=== PATIENT | female | born 1970 | race Caucasian/White ===

== ENCOUNTER 2020-01-20 18:39 | Emergency (ER) | payer OTHER, SELFPAY ==
--- NOTE | ~2020-01-20 | XR_ITS ---
EXAMINATION: XR wrist RT min 3V EXAM DATE: 01/20/2020 19:25 INDICATION: Chronic Wrist Pain. TECHNIQUE: Right wrist frontal, frontal with ulnar deviation, oblique and lateral projections obtain ed and reviewed. Comparison is made to prior examination from 11/01/2013. FINDINGS: Right wrist scapholunate joint space is maintained. There is ulnar positive variance with interval development of moderate osteoarthritis at the distal radial ulnar joint. There is mild to mo derate 1st carpometacarpal primary osteoarthritis. There are no acute fractures or dislocations ident ified. There is no subcutaneous gas. The soft tissue is unremarkable. There are no radiopaque for eign bodies. There are no bony erosions identified. IMPRESSION: Polyarticular osteoarthritis as above. Reviewed, dictated and finalized at location A.
--- NOTE | ~2020-01-20 | XR_ITS ---
EXAMINATION: XR lumbar spine 2-3V EXAM DATE: 01/20/2020 19:25 INDICATION: Injury 01/17/20. Moving Heavy Furniture. Low Back Pain. Initial encounter. TECHNIQUE: Lumber spine frontal, lateral, lateral L5-S1 projections for interpretation. There is no prior study for comparison. FINDINGS: Mild diffuse lumbar disc disease. The vertebral bodies are aligned in the AP dimension. Ve rtebral body heights maintained. There are no acute fractures identified. There is mild upper lumbar, mild to moderate lower lumbar facet arthropathy. Right hip replacement. Cholecystectomy clips. Sacru m, sacroiliac joints, sacral arcuate lines are intact. Calcifications in the pelvis are believed to b e phleboliths. IMPRESSION: 1. Mild lumbar disc disease. 2. Mild to moderate facet arthropathy. Reviewed, dictated and finalized at location A.
[2020-01-20 18:46] VITALS: BP 130/76; PULSE 73; RESP 16; TEMP 37.1; O2SAT 99
--- NOTE | 2020-01-20 18:54 | ED.BACK ---
HPI - Back Pain/Injury General Chief Complaint: Back Pain/Injury Stated Complaint: back injury Time Seen by Provider: 01/20/20 18:54 Source: patient and RN notes reviewed Mode of arrival: ambulatory Limitations: no limitations History of Present Illness HPI Narrative: 49 year old female who presents to [facility] care with complaints of pain to the lumbar region of her back since lifting on barn wood and a 12 foot wooden ladder on Monday. Patient states that pain started increasing on Monday morning has progressively become worse with no radiation into her legs or buttocks. Patient also states that she has been having pain in her right wrist which is not related to her back injury and request x-ray also.Patient denies any tingling or numbness to lower extremities, denies any difficulty with her bowels or bladder. MD elicited complaint: back pain and back injury Pertinent past history: recent trauma (heavy lifting) Onset (ago): day(s) (increased since Monday) Timing: progressively worsening Severity: moderate Pain scale (0-10): 8 Similar Symptoms Previously: No Quality: stabbing and aching Location: lumbar spine Radiation: none Exacerbating factors: movement, sitting upright and other (bending) Relieving factors: none Context: while lifting Associated symptoms: denies other symptoms Treatments prior to arrival: NSAIDS Work related injury: No Related Data Home Medications Medication Instructions Recorded Confirmed bupropion HCl 300 mg PO QAM 01/20/20 01/20/20 dextroamphetamine 30 mg PO DAILY 01/20/20 01/20/20 fluoxetine 40 mg PO DAILY 01/20/20 01/20/20 lamotrigine 150 mg PO BID 01/20/20 01/20/20 levothyroxine 175 mcg PO DAILY 01/20/20 01/20/20 pantoprazole 40 mg PO QAM 01/20/20 01/20/20 Allergies Allergy/AdvReac Type Severity Reaction Status Date / Time butorphanol Allergy Unknown Hives Verified 01/20/20 18:54 Penicillins AdvReac Intermediate Nausea and Verified 01/20/20 18:54 Vomiting CODEINE PHOS Allergy Unknown Unknown Uncoded 01/20/20 19:29 Review of Systems Review of Systems: Narrative: CONSTITUTIONAL: Denies fever, chills, or sweats. EYES: Denies visual changes, redness, or discharge. ENT: Denies rhinorrhea, congestion, sore throat, or otalgia. CARDIOVASCULAR: Denies chest pain, palpitations, or edema. RESPIRATORY: Denies cough or dyspnea. GASTROINTESTINAL: Denies abdominal pain, nausea, vomiting, or diarrhea. GENITOURINARY: Denies dysuria or hematuria. SKIN: Denies rash or itching. MUSCULOSKELETAL: Positive for lumbar back pain, joint pain, right wrist myalgia. NEUROLOGIC: Denies headache, numbness, or weakness. PSYCHIATRIC: Denies history of anxiety or depression. All systems reviewed & are unremarkable except as noted in HPI and below [facility] Past Medical History Medical History (Updated 01/21/20 @ 00:00 by Background Daemon) ADHD Anxiety and depression GERD (gastroesophageal reflux disease) Hypothyroidism Surgical History Surgical History (Updated 01/20/20 @ 19:09 by Lawanda Luevano NP) History of right hip replacement Hx of cholecystectomy Family History Family History (Updated 10/30/15 @ 23:19 by DOCTOR UNKNOWN) Sibling Family history of cardiac disorder Family history of malignant neoplasm of thyroid Mother Family history of chronic obstructive pulmonary disease Family history of diabetes mellitus in first degree relative Family history of heart disease in male family member before age 55 Father Family history of heart disease in male family member before age 55 Other Family history of malignant neoplasm Social History Social History (Updated 01/20/20 @ 19:24 by Lawanda Luevano NP) Smoking status: Never smoker Alcohol intake: unknown Substance use: unknown Living arrangements: with family Gender identity (if verbalized by the patient): Female Comments At time of signature, agree with nursing past medical, surgical, social and family history. There is
[2020-01-20 18:57] VITALS: BP 130/76; PULSE 73; RESP 16; TEMP 37.1; O2SAT 99
== END 2020-01-20 19:51 | disposition home or self-care (01) ==
PROVIDERS: Emergency Provider Registered Nurse
DX: S39.012A Strain of muscle, fascia and tendon of lower back, initial encounter (principal); X50.0XXA Overexertion from strenuous movement or load, initial encounter; M51.9 Unspecified thoracic, thoracolumbar and lumbosacral intervertebral disc disorder; M19.031 Primary osteoarthritis, right wrist; F90.9 Attention-deficit hyperactivity disorder, unspecified type; F41.9 Anxiety disorder, unspecified; F32.9 Major depressive disorder, single episode, unspecified; K21.9 Gastro-esophageal reflux disease without esophagitis; E03.9 Hypothyroidism, unspecified
CPT/HCPCS: 72100; 73110; 99203; 99204; G0463

== ENCOUNTER 2021-06-11 18:39 | Emergency (ER) | payer OTHER, SELFPAY ==
--- NOTE | ~2021-06-11 | XR_ITS ---
. EXAMINATION: XR knee LT min 4V DATE: 06/11/2021 19:02 INDICATION: Posterior left knee pain radiating down the leg TECHNIQUE: Anteroposterior, 2 oblique and crosstable lateral views of the left knee were obtained COMPARISON: None. FINDINGS: Alignment is normal. Normal variant bipartite patella with unfused secondary superolateral patellar o ssification center. No fracture. Mild osteoarthritis at the proximal tibiofibular articulation. Joint spaces appear otherwise normal on nonweightbearing imaging. No joint effusion/layering lipohemarthro sis. Soft tissues are unremarkable. IMPRESSION: 1. No left knee joint effusion or acute osseous abnormality. Reviewed, dictated and finalized at location A. [employer]
[2021-06-11 18:46] VITALS: BP 125/72; PULSE 81; RESP 20; TEMP 36.6; O2SAT 98
--- NOTE | 2021-06-11 18:46 | ED.LOWEXIN ---
HPI - Extremity Injury (Lower) General Chief Complaint: Extremity Injury, Lower Stated Complaint: left knee pain Time Seen by Provider: 06/11/21 19:00 Source: patient, RN notes reviewed and old records reviewed Mode of arrival: ambulatory Limitations: no limitations History of Present Illness HPI Narrative: 50-year-old female presents to the [facility] with left knee pain and swelling for 4 days. Tried taking ibuprofen 1 time. Takes tramadol on a regular basis and states it has not been helping her pain. Denies any injury Related Data Home Medications Medication Instructions Recorded Confirmed bupropion HCl 300 mg PO QAM 01/20/20 06/11/21 dextroamphetamine 30 mg PO DAILY 01/20/20 06/11/21 levothyroxine 175 mcg PO DAILY 01/20/20 06/11/21 Allergies Allergy/AdvReac Type Severity Reaction Status Date / Time butorphanol Allergy Unknown Hives Verified 06/11/21 19:02 Penicillins AdvReac Intermediate Nausea and Verified 06/11/21 19:02 Vomiting CODEINE PHOS Allergy Unknown Unknown Uncoded 06/11/21 19:02 Review of Systems Review of Systems: All systems reviewed & are unremarkable except as noted in HPI and below Constitutional: Constitutional: Reports no additional constitutional complaints, Denies chills and Denies fever(s) Eyes: Eyes: Reports no additional eye complaints ENT: Reports system reviewed and no additional complaints, except as documented Cardiovascular: Cardiovascular: Reports no additional cardiovascular complaints Respiratory: Respiratory: Reports no additional respiratory complaints Gastrointestinal: Gastrointestinal: Reports no additional gastrointestinal complaints Musculoskeletal: Musculoskeletal: Reports as per HPI Integumentary/Breasts: Skin/Breast: Reports system reviewed and no additional complaints, except as docu Neurologic: Reports system reviewed and no additional complaints, except as documented Psychiatric: Psychiatric: Reports no additional psychiatric complaints Allergic/Immunologic: Allergic/Immunologic: Reports no additional allergic/immunologic complaints [facility] Past Medical History Medical History (Updated 06/11/21 @ 19:39 by Maya Villar APRN) ADHD Anxiety and depression GERD (gastroesophageal reflux disease) Hypothyroidism Surgical History Surgical History (Updated 01/20/20 @ 19:09 by Lawanda Luevano NP) History of right hip replacement Hx of cholecystectomy Family History Family History (Updated 10/30/15 @ 23:19 by DOCTOR UNKNOWN) Sibling Family history of cardiac disorder Family history of malignant neoplasm of thyroid Mother Family history of chronic obstructive pulmonary disease Family history of diabetes mellitus in first degree relative Family history of heart disease in male family member before age 55 Father Family history of heart disease in male family member before age 55 Other Family history of malignant neoplasm Social History Social History (Updated 01/20/20 @ 19:24 by Lawanda Luevano NP) Smoking status: Never smoker Alcohol intake: unknown Substance use: unknown Gender identity (if verbalized by the patient): Female Comments At the time of my signature, I reviewed and agree with the nursing past medical, surgical, social, and family history. There is no relevant family history pertinent to the patient complaint. Exam Const: General: healthy appearing, no acute distress and alert Nutritional Appearance: well nourished Orientation/consciousness: patient oriented x3 Limitations: no limitations HENMT: Head: normal to inspection Ears: external ears normal Eyes: Pupils: Equal, round and reactive pupils present Neck: Neck: normal visual inspection, no lymphadenopathy and no meningeal signs Chest: Chest palpation & inspection: normal inspection of the chest Resp: Effort & Inspection: normal respiratory effort Auscultation: clear to auscultation bilaterally Cardio: Rate: regular rate Rhythm: regu
== END 2021-06-11 19:47 | disposition home or self-care (01) ==
PROVIDERS: Emergency Provider Nurse Practitioner; PCP Hospitalist
DX: M25.462 Effusion, left knee (principal); K21.9 Gastro-esophageal reflux disease without esophagitis; E03.9 Hypothyroidism, unspecified; F90.9 Attention-deficit hyperactivity disorder, unspecified type; F32.A Depression, unspecified
CPT/HCPCS: 73564; 99213; G0463

== ENCOUNTER 2021-09-01 16:50 | Emergency (ER) | payer OTHER, SELFPAY ==
[2021-09-01 16:58] VITALS: BP 136/84; PULSE 87; RESP 20; TEMP 36.6; O2SAT 96
--- NOTE | 2021-09-01 17:08 | ED.URI ---
HPI - URI/Sore Throat General Chief Complaint: Upper Respiratory Infection Stated Complaint: Sore Throat Time Seen by Provider: 09/01/21 17:15 Source: patient and RN notes reviewed Mode of arrival: ambulatory Limitations: no limitations History of Present Illness HPI Narrative: 50-year-old female presents with concern for 2-day history of sore throat, blisters on her throat. She reports painful swallowing. She reports nasal congestion, rhinorrhea, occasional cough, headache. She reports she has been taking DayQuil and NyQuil with little relief. She denies fever. Denies nausea, vomiting, diarrhea, shortness of breath. MD elicited complaint: cough and sore throat Related Data Home Medications Medication Instructions Recorded Confirmed bupropion HCl 300 mg 24 hr tablet, 300 mg PO QAM 01/20/20 06/11/21 extended release dextroamphetamine sulfate 30 mg 30 mg PO DAILY 01/20/20 06/11/21 tablet levothyroxine 175 mcg tablet 175 mcg PO DAILY 01/20/20 06/11/21 fluoxetine 20 mg capsule cap 09/01/21 lamotrigine 50 mg tablet,extended 50 mg PO DAILY 09/01/21 09/01/21 release 24 hr Allergies Allergy/AdvReac Type Severity Reaction Status Date / Time Penicillins AdvReac Intermediate Nausea and Verified 06/11/21 19:02 Vomiting CODEINE PHOS Allergy Unknown Unknown Uncoded 06/11/21 19:02 Review of Systems Review of Systems: CONSTITUTIONAL: Reports malaise. Denies chills, sweats, or fever. EYES: Denies visual changes, redness, or discharge. ENT: Reports rhinorrhea, congestion, otalgia and sore throat. CARDIOVASCULAR: Denies chest pain, palpitations, or edema. RESPIRATORY: Reports cough. Denies dyspnea. GASTROINTESTINAL: Denies abdominal pain, nausea, vomiting, diarrhea SKIN: Denies rash or itching. MUSCULOSKELETAL: Reports myalgia. NEUROLOGIC: Reports headache. All systems reviewed & are unremarkable except as noted in HPI and below [facility] Past Medical History Medical History (Updated 09/01/21 @ 17:45 by Maya Michel NP) ADHD Anxiety and depression GERD (gastroesophageal reflux disease) Hypothyroidism Surgical History Surgical History (Updated 01/20/20 @ 19:09 by Lawanda Luevano NP) History of right hip replacement Hx of cholecystectomy Family History Family History (Updated 10/30/15 @ 23:19 by DOCTOR UNKNOWN) Sibling Family history of cardiac disorder Family history of malignant neoplasm of thyroid Mother Family history of chronic obstructive pulmonary disease Family history of diabetes mellitus in first degree relative Family history of heart disease in male family member before age 55 Father Family history of heart disease in male family member before age 55 Other Family history of malignant neoplasm Social History Social History (Updated 01/20/20 @ 19:24 by Lawanda Luevano NP) Smoking status: Never smoker Alcohol intake: unknown Substance use: unknown Gender identity (if verbalized by the patient): Female Comments At time of signature, agree with nursing past medical, surgical, social and family history. There is no relevant family history pertinent to the presenting complaint Exam Narrative: GENERAL: Nontoxic and in no acute distress. HEAD: Normocephalic EYES: PERRLA, conjunctivae clear ENT: Nares clear, turbinates edematous and erythematous, clear discharge. Mucous membranes moist. TM pearly rogers with sharp light reflex bilaterally; no tragal tenderness. Oropharynx not erythematous without lesions. Tonsils not enlarged and without exudate, no drooling, no hoarseness, no trismus, uvula midline. NECK: Supple. No lymphadenopathy CHEST: Clear to auscultation, breath sounds equal. No wheezing, rhonchi, rales, or stridor. No respiratory distress, speaks in full sentences. HEART: Regular rate and rhythm. No murmur heard. SKIN: Warm, dry, no rash. NEURO: Alert and oriented x3. PSYCH: Normal mood and affect Course Course Emergency Course: Patient is aware of santi
== END 2021-09-01 17:58 | disposition home or self-care (01) ==
PROVIDERS: Emergency Provider Nurse Practitioner; PCP Hospitalist
DX: B34.9 Viral infection, unspecified (principal); Z20.822 Contact with and (suspected) exposure to COVID-19; K21.9 Gastro-esophageal reflux disease without esophagitis; E03.9 Hypothyroidism, unspecified; F41.9 Anxiety disorder, unspecified; F32.A Depression, unspecified; F90.9 Attention-deficit hyperactivity disorder, unspecified type
CPT/HCPCS: 87081; 87426; 87880; 99213; C9803; G0463

== ENCOUNTER 2021-12-20 09:54 | Emergency (ER) | payer OTHER, SELFPAY ==
[2021-12-20 09:58] VITALS: BP 131/78; PULSE 75; RESP 16; TEMP 36.4; O2SAT 100
--- NOTE | 2021-12-20 09:58 | ED.SKABFB ---
HPI - Skin/Abscess/Foreign Bdy General Chief complaint: Ear Stated complaint: Right Ear Pain Time Seen by Provider: 12/20/21 09:58 Source: patient and RN notes reviewed History of Present Illness HPI narrative: Patient is a 51-year-old female who presents the urgent care with complaints of a facial rash for the last month and right ear pain for the last 3 to 4 days. Patient states that she has not brought up to her PCP regarding her rash. 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 Patient has been using hydrocortisone cream to the face. Patient states that the right ear pain started after some nasal congestion. States that it was bleeding yesterday after she used a Q-tip. Patient has not taken anything [id number] for her right ear pain. No other acute complaints. No acute distress noted. Patient aware of the plan of care. Some parts of this dictation were generated by voice recognition software and may contain typographical and/or grammatical inaccuracies. Related Data Home Medications Medication Instructions Recorded Confirmed bupropion HCl 300 mg 24 hr tablet, 300 mg PO QAM 01/20/20 06/11/21 extended release dextroamphetamine sulfate 30 mg 30 mg PO DAILY 01/20/20 06/11/21 tablet levothyroxine 175 mcg tablet 175 mcg PO DAILY 01/20/20 06/11/21 Allergies Allergy/AdvReac Type Severity Reaction Status Date / Time Penicillins AdvReac Intermediate Nausea and Verified 12/20/21 10:01 Vomiting codeine AdvReac Nausea and Verified 12/20/21 10:04 Vomiting Review of Systems Review of Systems: CONSTITUTIONAL: Denies fever, chills, or sweats. EYES: Denies visual changes, redness, or discharge. ENT: Denies rhinorrhea, congestion, sore throat. Reports of right otalgia CARDIOVASCULAR: Denies chest pain, palpitations, or edema. RESPIRATORY: Denies cough or dyspnea. GASTROINTESTINAL: Denies abdominal pain, nausea, vomiting, or diarrhea. GENITOURINARY: Denies dysuria or hematuria. SKIN: Reports of a rash to the face MUSCULOSKELETAL: Denies back pain, joint pain, or myalgia. NEUROLOGIC: Denies headache, numbness, or weakness. All other systems reviewed are negative, except as documented in HPI. [facility] Past Medical History Medical History (Updated 12/20/21 @ 10:13 by JAMEE Salinas) ADHD Anxiety and depression GERD (gastroesophageal reflux disease) Hypothyroidism Surgical History Surgical History (Updated 01/20/20 @ 19:09 by Lawanda Luevano NP) History of right hip replacement Hx of cholecystectomy Family History Family History (Updated 10/30/15 @ 23:19 by DOCTOR UNKNOWN) Sibling Family history of cardiac disorder Family history of malignant neoplasm of thyroid Mother Family history of chronic obstructive pulmonary disease Family history of diabetes mellitus in first degree relative Family history of heart disease in male family member before age 55 Father Family history of heart disease in male family member before age 55 Other Family history of malignant neoplasm Social History Social History (Updated 01/20/20 @ 19:24 by Lawanda Luevano NP) Smoking status: Never smoker Alcohol intake: unknown Substance use: unknown Gender identity (if verbalized by the patient): Female Comments At the time of my signature, I reviewed and agree with the nursing past medical, surgical, social, and family history. There is no relevant family history pertinent to the patient complaint. Exam Narrative: GENERAL: This is a well-nourished, well-developed patient, in no apparent distress. HEAD: normocephalic, atraumatic. EYES: PERRL. Sclera clear/white. Vision is grossly intact. EARS: External ears normal, auditory canals clear and without drainage, TMs normal without perforation. Hearing grossly intact. NOSE: External nose normal with no obvious nasal discharge, nares without redness, no rhinorrhea. THROAT: Mucous membranes moist NECK: Neck dickson
[2021-12-20 10:06] VITALS: BP 131/78; PULSE 75; RESP 16; TEMP 36.4; O2SAT 100
== END 2021-12-20 10:26 | disposition home or self-care (01) ==
PROVIDERS: Emergency Provider Nurse Practitioner Family; PCP Hospitalist
DX: L71.9 Rosacea, unspecified (principal); H92.01 Otalgia, right ear; F90.9 Attention-deficit hyperactivity disorder, unspecified type; K21.9 Gastro-esophageal reflux disease without esophagitis; E03.9 Hypothyroidism, unspecified; Z96.641 Presence of right artificial hip joint
CPT/HCPCS: 99211; G0463